=== PATIENT | male | born 1950 | race Caucasian/White ===

== ENCOUNTER 2020-03-07 18:32 | Emergency (ER) | payer OTHER, SELFPAY ==
[2020-03-07 18:31] VITALS: BP 166/88; PULSE 94; RESP 20; TEMP 37.2; O2SAT 97
[2020-03-07 20:15] VITALS: BP 161/86; PULSE 82; RESP 20; O2SAT 95
[2020-03-07] MEDS: HYDROcodone/acetaminophen (*CRX) 5-325 MG TABLET 1 TAB PO (20:15)
[2020-03-07] MEDS: TETANUS,DIPHTHERIA,AC PERTUSSIS ADULT (0.5 ML) BOOSTRIX IM (20:25)
[2020-03-07] MEDS: SILVER SULFADIAZINE 1% CR 400 GM JAR (*BKC) 1 APPLIC TOPICAL (20:26)
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
== END 2020-03-07 21:30 | disposition home or self-care (01) ==
PROVIDERS: Emergency Provider Family Medicine; PCP Internal Medicine
DX: T24.232A Burn of second degree of left lower leg, initial encounter (principal); T24.231A Burn of second degree of right lower leg, initial encounter; T31.0 Burns involving less than 10% of body surface; Z23 Encounter for immunization; I50.9 Heart failure, unspecified; I11.0 Hypertensive heart disease with heart failure; I25.10 Atherosclerotic heart disease of native coronary artery without angina pectoris; E78.5 Hyperlipidemia, unspecified; Z79.01 Long term (current) use of anticoagulants; Z79.82 Long term (current) use of aspirin; X04.XXXA Exposure to ignition of highly flammable material, initial encounter; X06.2XXA Exposure to ignition of other clothing and apparel, initial encounter
CPT/HCPCS: 16020; 90471; 90715; 99283; A9270

== ENCOUNTER 2021-10-27 13:39 | Outpatient (CLI) | payer OTHER, SELFPAY ==
--- NOTE | ~2021-10-27 | US_ITS ---
EXAMINATION: US thyroid DATE: 10/27/2021 14:24 INDICATION: Nontoxic single thyroid nodule. TECHNIQUE: Multiple ultrasound images of the thyroid were obtained. COMPARISON: None. FINDINGS: The right thyroid lobe measures 4.3 x 1.4 x 2.3 cm. The left thyroid lobe measures 5.3 x 2.5 x 3.5 c m. In the right thyroid lobe, there is a 6 mm solid, hypoechoic, [id number] nodule with smooth margin without echogenic foci (TI-RADS TR4). In the left thyroid lobe, there is a 4.5 cm solid, hypoe choic, [id number]-lher-lbbi nodule with ill-defined margin without echogenic foci (TR4). IMPRESSION: 1. Thyroid nodules. Ultrasound-guided fine-needle aspiration of the 4.5 cm left thyroid nodule is rec ommended. Reviewed, dictated and finalized at location A. IMPRESSION: 1. Thyroid nodules. Ultrasound-guided fine-needle aspiration of the 4.5 cm left thyroid nodule is recommended.
== END 2021-10-27 13:40 | disposition home or self-care (01) ==
PROVIDERS: PCP Internal Medicine; Visit Provider Internal Medicine
DX: E04.1 Nontoxic single thyroid nodule (principal)
CPT/HCPCS: 76536

== ENCOUNTER → 2021-12-23 09:08 | Outpatient (CLI) | payer OTHER, SELFPAY ==
--- NOTE | ~2021-12-23 | CT_ITS ---
EXAMINATION: CT diagnostic chest wo con DATE: 12/23/2021 09:29 INDICATION: Abnormal chest x-ray. Cough. History of pneumonia. TECHNIQUE: Computed tomography (CT) of the chest was performed without intravenous contrast. The dose -length product was 711.33 mGy-cm. Automated exposure control and iterative reconstruction technique were employed. COMPARISON: Chest dated 09/23/2012 FINDINGS: Cardiomegaly. There is atherosclerosis of the aorta and coronary arteries. Status post medi an sternotomy for CABG. There is diffuse right pleural thickening, likely sequela of previous infecti on. No left pleural effusion or pericardial effusion. There is right middle lobe and lower lobe multi focal consolidation which may represent atelectasis/scarring or developing pneumonia. No endobronchia l lesions. 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 IMPRESSION: 1. Multifocal infiltrates of the right middle and lower lobe which may represent atelectasis/scarring or developing pneumonia. 2: Moderate diffuse right pleural thickening, likely sequela of previous infectious/inflammatory pro cess. 3: Cardiomegaly. Status post median sternotomy for CABG. Reviewed, dictated and finalized at location A. IMPRESSION: 1. Multifocal infiltrates of the right middle and lower lobe which may represen t atelectasis/scarring or developing pneumonia. 2: Moderate diffuse right pleural thickening, likely sequela of previous infec tious/inflammatory process. 3: Cardiomegaly. Status post median sternotomy for CABG.
== END ==
PROVIDERS: PCP Internal Medicine; Visit Provider Internal Medicine
DX: R93.89 Abnormal findings on diagnostic imaging of other specified body structures (principal); R91.8 Other nonspecific abnormal finding of lung field; I51.7 Cardiomegaly; J90 Pleural effusion, not elsewhere classified
CPT/HCPCS: 71250

== ENCOUNTER 2021-12-29 11:00 | Outpatient (CLI) | payer OTHER, SELFPAY ==
--- NOTE | ~2021-12-29 | US_ITS ---
EXAMINATION: US FNA w image guidance DATE: 12/29/2021 12:13 INDICATION: Thyroid nodule TECHNIQUE: A time-out was performed to verify the patient's name, date of , and procedure to be performed . The procedure and its benefits and risks were discussed with the patient. Risks specifically discus sed included bleeding and infection. The patient understood the risks and agreed to proceed. The neck was prepped and draped in the usual sterile manner. 3 mL 1% lidocaine was used for local anesthesia . 6 passes were made with a 25G needle into the lesion. Appropriate needle location was documented with continuous sonographic guidance. A sterile bandage was applied. There were no immediate compli cations. FINDINGS: Grayscale ultrasound images demonstrate biopsy needles advanced into a 4.6 x 2.5 x 3.1 cm TI RADS 4 l eft thyroid nodule. IMPRESSION: 1. Successful ultrasound-guided fine needle aspiration of a 4.6 cm TI RADS 4 left thyroid nodule. Reviewed, dictated and finalized at location A. IMPRESSION: 1. Successful ultrasound-guided fine needle aspiration of a 4.6 cm TI RADS 4 l eft thyroid nodule.
== END 2021-12-29 11:01 | disposition home or self-care (01) ==
PROVIDERS: PCP Internal Medicine; Visit Provider Internal Medicine
DX: E04.1 Nontoxic single thyroid nodule (principal)
CPT/HCPCS: 10005; 88173; 88305

== ENCOUNTER 2022-08-24 00:39 | Day surgery (SDC) | payer OTHER, SELFPAY ==
[2022-08-14 14:40] VITALS: BMI 40.7
--- NOTE | 2022-08-21 15:04 | PC.NURSE ---
Order to hold Eliquis received from Dr. Snow' office. Notified patient to hold Eliquis starting 08/22/22 until after procedure on 08/24/22. Instructed that he would be informed on day of procedure by Dr. Markham when to restart Eliquis.
[2022-08-24 06:47] VITALS: BP 157/82; PULSE 96; RESP 20; TEMP 36.3; O2SAT 96; BMI 43.0
[2022-08-24] MEDS: LACTATED RINGERS 1,000 ML 150 ML IV CONT (06:53)
--- NOTE | 2022-08-24 07:47 | P.PNAN_ITS ---
Anes - Initial Pre Proc Eval Procedure: Operation Date: 08/24/22 08:00 Proposed Procedures p Screening Colonoscopy - Cuong Markham MD Date/Time: 08/24/22 07:47 Surgeon: Cuong Markham MD Pre Op Diagnosis: neoplasm screening Patient Data Age: 72 Gender: M Height: 1.75 m Weight: 132.1 kg Last Vital Signs Temp 97.4 F L 08/24/22 06:47 Pulse 96 08/24/22 06:47 Resp 20 08/24/22 06:47 BP 157/82 H 08/24/22 06:47 Pulse Ox 96 08/24/22 06:47 O2 Del Method Room Air 08/24/22 06:47 Allergies Allergy/AdvReac Type Severity Reaction Status Date / Time No Known Allergies Allergy Unknown Verified 08/24/22 06:45 Home Medications Medication Instructions Recorded Confirmed Type aspirin 81 mg tablet,delayed 81 mg PO DAILY 03/07/20 08/14/22 History release (Adult Aspirin Regimen) atorvastatin 20 mg tablet 20 mg PO DAILY 03/07/20 08/14/22 History carvedilol 25 mg tablet (Coreg) 25 mg PO BID 03/07/20 08/14/22 History furosemide 20 mg tablet (Lasix) 20 mg PO BID 03/07/20 08/14/22 History hydrocodone 5 mg-acetaminophen 325 1 tablet PO Q6H PRN pain #14 tabs 03/07/20 08/14/22 Rx mg tablet multivitamin (Daily Multi-Vitamin 1 tablet PO DAILY 03/07/20 08/14/22 History tablet) sulfamethoxazole 800 1 tablet PO Q12H 03/07/20 08/14/22 History mg-trimethoprim 160 mg tablet sodium,potassium,mag sulfates 17.5 See Rx Instructions PO .COMPLEX 08/09/22 08/14/22 Rx gram-3.13 gram-1.6 gram oral soln #354 mL (Suprep Bowel Prep Kit) apixaban 5 mg tablet (Eliquis) 5 mg PO BID 08/14/22 08/14/22 History Patient hx anesthesia problems: none Family hx anesthesia problems: none Results Review: All pre-operative results and documents have been reviewed as part of the pre- operative evaluation. [facility] Past Medical History Medical History (Updated 03/08/20 @ 00:00 by Background Daemon) CHF (congestive heart failure) Coronary artery disease History of hyperlipidemia History of hypertension Social History Social History Smoking status: Never smoker Alcohol intake: current Drinks per week: 1 Substance use: never Substance use type: does not use Living arrangements: with family Spiritual care concerns: No Anes - Eval Final PreProcedure Day of Procedure 08/24/22 07:47 Patient weight: morbidly obese Heart: regular rate and rhythm Lungs: clear to auscultation Airway: Mallampati scale class III Neurological: alert and oriented Last oral intake: >/= 8 hours ASA classification: III Emergent: no Anesthetic plan: proceed Anesthesia type and monitoring: general GIVS and standard monitoring Results Review: All pre-operative results and documents have been reviewed as part of the pre- operative evaluation. Informed Consent: The patient's anesthetic plan and its attendant risks and benefits were discussed with the patient/family/POA. Questions were solicited and answers provided to the satisfaction of the patient/family/POA.
--- NOTE | 2022-08-24 07:54 | PM.HPGS ---
History of Present Illness History of Present Illness Consent: Risks, benefits, and alternatives have been discussed and questions answered. Patient agrees to proceed with procedure. Chief complaint: neoplasm screening Narrative: Jack Baldwin Jr. is a 72 year old male Presents for screening colonoscopy. Patient's current weight appetite and bowel movements are normal. Patient denies abdominal pain. He has had no bleeding. Family history noncontributory. Patient states he had colonoscopy many years ago that was unremarkable. Patient presents today for neoplasia screening. Review of Systems Review of Systems: Review of systems noncontributory. [facility] Past Medical History Medical History (Updated 08/24/22 @ 07:55 by Cuong Markham MD) CHF (congestive heart failure) Coronary artery disease History of hyperlipidemia History of hypertension Social History Social History Smoking status: Never smoker Alcohol intake: current Drinks per week: 1 Substance use: never Substance use type: does not use Living arrangements: with family Spiritual care concerns: No Meds Home Medications and Allergies Home Medications Medication Instructions Recorded Confirmed Type aspirin 81 mg tablet,delayed 81 mg PO DAILY 03/07/20 08/14/22 History release (Adult Aspirin Regimen) atorvastatin 20 mg tablet 20 mg PO DAILY 03/07/20 08/14/22 History carvedilol 25 mg tablet (Coreg) 25 mg PO BID 03/07/20 08/14/22 History furosemide 20 mg tablet (Lasix) 20 mg PO BID 03/07/20 08/14/22 History hydrocodone 5 mg-acetaminophen 325 1 tablet PO Q6H PRN pain #14 tabs 03/07/20 08/14/22 Rx mg tablet multivitamin (Daily Multi-Vitamin 1 tablet PO DAILY 03/07/20 08/14/22 History tablet) sulfamethoxazole 800 1 tablet PO Q12H 03/07/20 08/14/22 History mg-trimethoprim 160 mg tablet sodium,potassium,mag sulfates 17.5 See Rx Instructions PO .COMPLEX 08/09/22 08/14/22 Rx gram-3.13 gram-1.6 gram oral soln #354 mL (Suprep Bowel Prep Kit) apixaban 5 mg tablet (Eliquis) 5 mg PO BID 08/14/22 08/14/22 History Allergies Allergy/AdvReac Type Severity Reaction Status Date / Time No Known Allergies Allergy Unknown Verified 08/24/22 06:45 Vital Signs Vital Signs - 24 hr 08/24/22 06:47 Temperature 97.4 F L Pulse Rate 96 Respiratory Rate 20 Blood Pressure 157/82 H Pulse Oximetry 96 Oxygen Delivery Room Air Exam Narrative: Physical exam reveals patient to be alert. Vital signs stable. HEENT exam is unremarkable. Patient is anicteric. Lungs are clear to auscultation and percussion. Heart is without murmur or extra sounds. Abdomen bowel sounds are present soft nontender with no organomegaly. Digital external rectal exam is normal. Assessment and Plan Assessment and plan (1) Encounter for screening colonoscopy: Code(s): Z12.11 - Encounter for screening for malignant neoplasm of colon Status: Acute Assessment and Plan: Patient presents today for screening colonoscopy. He appears to be at average risk for colon polyps. Further recommendations will be given after endoscopy.
[2022-08-24 08:30] VITALS: BP 137/75; PULSE 83; RESP 31; O2SAT 97
[2022-08-24 08:40] VITALS: BP 157/90; PULSE 75; RESP 36; O2SAT 97
[2022-08-24 08:50] VITALS: BP 162/83; PULSE 73; RESP 16; O2SAT 98
== END 2022-08-24 08:57 | disposition home or self-care (01) ==
PROVIDERS: PCP Internal Medicine; Visit Provider Internal Medicine Gastroenterology
PROC: 0DJD8ZZ Inspection of Lower Intestinal Tract, Via Natural or Artificial Opening Endoscopic (ICD-10-PCS; CPT 45378; principal; 2022-08-24 08:00)
DX: Z12.11 Encounter for screening for malignant neoplasm of colon (principal); K64.8 Other hemorrhoids; K57.30 Diverticulosis of large intestine without perforation or abscess without bleeding; I11.0 Hypertensive heart disease with heart failure; I50.9 Heart failure, unspecified; I25.10 Atherosclerotic heart disease of native coronary artery without angina pectoris; E78.5 Hyperlipidemia, unspecified; Z79.82 Long term (current) use of aspirin; Z79.891 Long term (current) use of opiate analgesic; E66.01 Morbid (severe) obesity due to excess calories; Z68.41 Body mass index [BMI] 40.0-44.9, adult
CPT/HCPCS: 45378; J2704; J7120

== ENCOUNTER 2023-06-15 10:22 | Emergency (ER) | payer OTHER, SELFPAY ==
--- NOTE | ~2023-06-15 | XR_ITS ---
Clinical Indication: Shortness of breath PA and lateral views of the chest: Comparison: 09/23/2012 Findings: There is probable small right pleural effusion with right basilar atelectatic change. Left lung clear.. Cardiomediastinal silhouette is within normal limits. Extensive spinal fixation hardwar e is present. Impression: Small right pleural effusion with probable bibasilar atelectatic change. Correlate clinically for pne umonia. Extensive spinal fixation hardware. Reviewed, dictated and finalized at location M. [employer] TECH[employer]ICIAN Impression: Small right pleural effusion with probable bibasilar atelectatic change. Correl ate clinically for pneumonia. Extensive spinal fixation hardware.
--- NOTE | 2023-06-15 10:34 | ED.URI ---
HPI - URI/Sore Throat General Chief Complaint: Upper Respiratory Infection Stated Complaint: diarrhea,sob,cough Time Seen by Provider: 06/15/23 10:34 Source: patient Mode of arrival: ambulatory Limitations: no limitations History of Present Illness HPI Narrative: Jack is a 73-year-old male patient presenting to the clinic today with complaints of diarrhea, shortness breath, and cough x2 days. He reports he is bringing up some brown phlegm. Shortness of breath is worth upon exertion. Has had a few episodes of diarrhea. Does also reports some chills without known fever. MD elicited complaint: cough, nasal congestion and other (Shortness of breath, cough) Related Data Home Medications Medication Instructions Recorded Confirmed aspirin 81 mg tablet,delayed 81 mg PO DAILY 03/07/20 06/15/23 release (Adult Aspirin Regimen) atorvastatin 20 mg tablet 20 mg PO DAILY 03/07/20 06/15/23 carvedilol 25 mg tablet (Coreg) 25 mg PO BID 03/07/20 06/15/23 furosemide 20 mg tablet (Lasix) 20 mg PO BID 03/07/20 06/15/23 multivitamin (Daily Multi-Vitamin 1 tablet PO DAILY 03/07/20 06/15/23 tablet) apixaban 5 mg tablet (Eliquis) 5 mg PO BID 08/14/22 06/15/23 Allergies Allergy/AdvReac Type Severity Reaction Status Date / Time No Known Allergies Allergy Unknown Verified 06/15/23 11:01 Review of Systems Review of Systems: Pertinent positives per HPI. Patient denies any fever, rash, headache, visual changes, dizziness, chest pain, palpitations, nausea, vomiting, diarrhea, constipation, abdominal pain, or any urinary issues. [facility] Past Medical History Medical History CHF (congestive heart failure) Coronary artery disease History of hyperlipidemia History of hypertension Social History Social History Smoking status: Never smoker Alcohol intake: current Drinks per week: 1 Substance use: never Substance use type: does not use Living arrangements: with family Spiritual care concerns: No Comments At the time of my signature, I reviewed and agree with the nursing past medical, surgical, social, and family history. There is no relevant family history pertinent to the patient complaint. Exam Narrative: General: Well-developed, well nourished, in no apparent distress Head: Normocephalic, atraumatic Eyes: Pupils equally round and reactive to light bilaterally, EOM intact, sclera and conjunctive clear, no discharge, lids normal Ears: TMs intact and clear, ear canals clear, no drainage, grossly hearing normal. Nose: Nares patent, clear nasal discharge, mild inflammation, no sinus tenderness. Mouth: Oral pharynx without lesions or masses, good dentition, MMM. Neck: Supple, trachea midline, no enlargement of anterior or posterior cervical nodes, no thyroid masses or goiter palpable. Cardio: Regular rate and rhythm, s1 and s2 normal, no murmur appreciated. Resp: Faint wheeze to the right upper lobe with faint crackles in the lower bases, no rhonchi or rubs Musculoskeletal: No deformity, non-tender to palpation, grossly normal range of motion, muscle strength strong and equal, peripheral pulse strong, 1+ pitting edema in bilateral lower extremities, no cyanosis, normal gait and station Course Course Emergency Course: Portions of this record may have been created with voice recognition software. Level of Care: Express Care Visit Vital Signs Vital signs: Vital signs reviewed Transfer Transfered to: [facility] Transportation: Other (private car) Transfer rationale: Shortness of breath-rule out CHF exacerbation verses right lower lobe consolidated pneumonia. Accepting physician: Ursula Transfer comments: Private car MDM - URI/Sore Throat MDM Narrative Medical decision making narrative: At the time of visit patient is resting comfortably on the exam table. Patient appears to be nontox
[2023-06-15 10:53] VITALS: BP 164/72; PULSE 67; RESP 20; TEMP 36.4; O2SAT 95
== END 2023-06-15 11:45 | disposition short-term general hospital (02) ==
LOC: EXPTROY 10:38
PROVIDERS: Emergency Provider Nurse Practitioner Family; PCP Internal Medicine
DX: R06.02 Shortness of breath (principal); I25.10 Atherosclerotic heart disease of native coronary artery without angina pectoris; E78.5 Hyperlipidemia, unspecified; I10 Essential (primary) hypertension; I50.9 Heart failure, unspecified; Z79.899 Other long term (current) drug therapy; Z79.01 Long term (current) use of anticoagulants; Z79.82 Long term (current) use of aspirin; Z20.822 Contact with and (suspected) exposure to COVID-19
CPT/HCPCS: 71046; 87426; 87804; 99213; C9803; G0463

== ENCOUNTER 2023-06-15 12:05 | Emergency (ER) | payer OTHER, SELFPAY ==
[2023-06-15 12:15] VITALS: BP 137/68; PULSE 78; RESP 20; TEMP 36.7; O2SAT 98
--- NOTE | 2023-06-15 13:50 | PC.NURSE ---
pt up to desk requesting the papers he was sent with from urgent care so he could leave. pt given papers and pt left dept
== END 2023-06-15 13:50 | disposition left against medical advice (07) ==
PROVIDERS: PCP Internal Medicine
DX: R06.00 Dyspnea, unspecified (principal)
CPT/HCPCS: 99199

== ENCOUNTER 2023-12-18 03:02 | Day surgery (SDC) | payer OTHER, SELFPAY ==
[2023-12-17 14:31] VITALS: BMI 41.6
[2023-12-18] VITALS (14 sets, daily range): BP systolic 144–167; BP diastolic 64–102; PULSE 67–80; RESP 12–22; TEMP 36.6–36.7; O2SAT 95–98
[2023-12-18 07:31] LABS: Basophils Absolute Auto 0.1 K/mm3 (0.0-0.1); Basophils Percent Auto 0.7 % (0.2-1.2); Eosinophils Absolute Auto 0.2 K/mm3 (0-0.3); Eosinophils Percent Auto 3.4 % (0-4.4); Hematocrit 41.3 % (42.0-52.0); Immature Granulocyte Absolute 0.02 K/mm3 (0.00-0.031); Immature Granulocyte Percent A 0.3 % (0-0.5); Lymphocytes Absolute Auto 1.03 K/mm3 (0.9-3.2); Lymphocytes Percent Auto 15.2 % (18.3-44.2); Mean Corpuscular HGB Conc 31.5 g/dl (32-36); Mean Corpuscular Hemoglobin 27.7 pg (26-34); Mean Corpuscular Volume 88.1 fl (80-100); Mean Platelet Volume 9.9 fl (7.4-10.4); Monocytes Absolute Auto 0.5 K/mm3 (0.1-0.6); Monocytes Percent Auto 7.8 % (2.6-8.5); Neutrophils Absolute Auto 4.9 K/mm3 (1.3-6.7); Neutrophils Percent Auto 72.6 % (45.5-73.1); Platelet Count Result 196 k/mm3 (150-375); Red Blood Count 4.69 M/mm3 (4.6-6.20); Red Cell Distribution Width 15.7 % (11.5-14.5); White Blood Count 6.8 K/mm3 (4.5-10.0)
[2023-12-18 07:41] LABS: Anion Gap 8 mmol/L (4-12); Blood Urea Nitrogen 20 mg/dL (9-20); Calcium 8.6 mg/dL (8.4-10.2); Carbon Dioxide 31 mmol/L (22-30); Chloride 102 mmol/L (98-107); Estimated CRCL calculation 81 ml/min; Estimated Glomerular Filt Rate > 60; Glucose 113 mg/dL (65-110); Potassium 3.9 mmol/L (3.4-5.0); Sodium 141 mmol/L (137-145)
--- NOTE | 2023-12-18 08:57 | WPDHPUPDATE1 ---
History and Physical Update Update Date/Time: 12/18/23 08:57 History and Physical has been reviewed, including an updated exam of the patient. There are NO changes in the patient's condition. Risks, benefits, and alternatives have been discussed and questions answered. Patient agrees to proceed with procedure.
--- NOTE | 2023-12-18 08:57 | WPDMODSED ---
Moderate Sedation Note-Pt Data Patient Data Diagnosis: Coronary artery disease s/p CABG Present Complaint: Coronary artery disease s/p CABG Procedure to be performed/Plan: Coronary angiography, bypass graft angiography, left heart cath, +/- PCI Allergies Allergy/AdvReac Type Severity Reaction Status Date / Time No Known Allergies Allergy Unknown Verified 12/17/23 14:26 Home Medications Medication Instructions Recorded Confirmed Type aspirin 81 mg tablet,delayed 81 mg PO DAILY 03/07/20 12/17/23 History release (Adult Aspirin Regimen) atorvastatin 20 mg tablet 20 mg PO DAILY 03/07/20 12/17/23 History carvedilol 25 mg tablet (Coreg) 25 mg PO BID 03/07/20 12/17/23 History furosemide 20 mg tablet (Lasix) 20 mg PO BID 03/07/20 12/17/23 History multivitamin (Daily Multi-Vitamin 1 tablet PO DAILY 03/07/20 12/17/23 History tablet) apixaban 5 mg tablet (Eliquis) 5 mg PO BID 08/14/22 12/17/23 History ferrous sulfate 325 mg (65 mg 325 mg PO DAILY 12/17/23 12/17/23 History iron) tablet (FeroSul) finasteride 5 mg tablet 5 mg PO DAILY 12/17/23 12/17/23 History Current Medications: Active Medications Sodium Chloride (Normal Saline Iv) 500 mls @ 100 mls/hr IV CONT .Q5H OJ Sedation/Anesthesia: No previous sedation/anesthesia problems (including family history). [facility] Past Medical History Medical History CHF (congestive heart failure) Coronary artery disease History of hyperlipidemia History of hypertension Social History Social History Smoking status: Never smoker Alcohol intake: current Drinks per week: 1 Substance use: never Substance use type: does not use Living arrangements: with family Spiritual care concerns: No Mod Sed Physical Exam Physical Exam Pre Procedural Exam: Normal: Lungs, Heart Rate, Heart Rhythm, Neuro Exam, Extremities and Skin and Variation: Appearance (Morbidly obese ) and Abdomen (Central obesity ) Hours since solid foods: 12 Hours since liquid intake: 8 Mallampati Classification: class III Internal Medicine - PN: Obj Da Vital Signs Vital Signs: Vital Signs - 24 hr 12/18/23 07:20 Temperature 36.7 C Pulse Rate 77 Respiratory Rate 16 Blood Pressure 161/86 H Pulse Oximetry 97 Oxygen Delivery Room Air Meds/Results Medications: Active Medications Generic Name Dose Route Start Last Admin Trade Name Nora PRN Reason Stop Dose Admin Sodium Chloride 500 mls @ 100 mls/hr 12/18/23 07:00 Normal Saline Iv IV CONT .Q5H OJ Labs 12/18/23 07:18 12/18/23 07:18 Labs: Laboratory Results - last 24 hr 12/18/23 07:18 WBC 6.8 RBC 4.69 Hgb 13.0 L Hct 41.3 L MCV 88.1 MCH 27.7 MCHC 31.5 L RDW 15.7 H Plt Count 196 MPV 9.9 Immature Gran % (Auto) 0.3 Neut % (Auto) 72.6 Lymph % (Auto) 15.2 L [place] % (Auto) 7.8 Eos % (Auto) 3.4 Baso % (Auto) 0.7 Lymph # (Auto) 1.03 [place] # (Auto) 0.5 Eos # (Auto) 0.2 Baso # (Auto) 0.1 Abs Immat Gran (auto) 0.02 Absolute Neuts (auto) 4.9 Absolute Nucleated RBC 0.000 Nucleated RBC % 0.0 Sodium 141 Potassium 3.9 Chloride 102 Carbon Dioxide 31 H Anion Gap 8 BUN 20 Creatinine 1.00 Estim Creat Clear Calc 81 Estimated GFR > 60 Glucose 113 H Calcium 8.6 ASA Classification/Sedation ASA Classification/Sedation ASA Class: II Emergent: No Risks: Risks, benefits and alternatives explained and patient/family accepted plan for sedation. Patient re-evaluated immediately prior to sedation.
--- NOTE | 2023-12-18 08:58 | WPDCARDPROC ---
Cardiac Cath Procedure Note Date of procedure:: 12/18/23 Performing physician:: CATHETERIZATION LABORATORY REPORT Procedure Date: 12/18/2023 Underground [employer] Superintendent: Aidee Romano M.D., [facility]? Referring Physician: Rafael Vega M.D. ? Anesthesia: Versed and Fentanyl were ordered and given in my presence at 09:05, procedure ended at 09:39. Supervision of nurse monitored moderate sedation with Versed and Fentanyl was provided for 34 minutes. Total of Versed 2mg and Fentanyl 50mcg were administered by the Senior Infrastructure Architect RN Austin Quinn. Pre-op Diagnosis: Coronary artery disease s/p CABG Post-op Diagnosis: 1. The LAD has severe diffuse disease and is occluded in the mid portion. Competitive filling in the LAD and diagonal branch from the BEAN graft is seen. BEAN to the LAD and Diagonal branch is widely patent. The LAD and the diagonal branch after the BEAN anastomosis are small caliber vessels and with diffuse disease. 2. Dominant RCA with severe calcific distal RCA bifurcation disease extending into the ostial RPLV. Procedure(s): 1. Moderate sedation 2. Ultrasound-guided access of the right common femoral artery 3. Coronary angiography 4. Bypass graft angiography Access Site: Right common femoral artery Brief History and Clinical Indications: Patient is a 73 year old male with CAD s/p CABG who is referred for [facility] for abnormal stress test. All risks, benefits and alternatives to left heart catheterization with or without percutaneous coronary intervention was discussed at length with the patient. Risk of complications including but not limited to bleeding, infection, arrhythmia, stroke, worsening kidney function, blood loss, groin hematoma, limb loss, emergency coronary artery bypass grafting, and even were discussed with the patient and all questions were answered. The patient understood and wished to proceed. Time out called, patient name, date of , medical record number, allergies, procedure performed, identify [employer] Superintendent, patient and staff member concurred with accurate data, procedure carried on. Findings: LEFT HEART CATHETERIZATION FINDINGS: 1. Left main: The left main coronary artery is widely patent without any significant obstructive disease. The left main is a long vessel. 2. Left anterior descending: The LAD has severe diffuse disease and is occluded in the mid portion. Competitive filling in the LAD and diagonal branch from the BEAN graft is seen. The LAD and the diagonal branch after the BEAN anastomosis are small caliber vessels and with diffuse disease. 3. Left circumflex: The left circumflex artery has diffuse mild disease. The OM branch has luminal irregularities. No significant obstructive angiographic disease. 4. Right coronary artery: Large caliber vessel. The RCA is the dominant vessel. The distal RCA is heavily calcified. There is significant calcific distal RCA bifurcation disease of 80-90% extending into the ostial RPLV. 5. Bypass graft angiography: A. BEAN to the LAD and Diagonal branch is widely patent. Description of Procedure: Informed consent signed and placed in the chart. Patient transferred to cath lab tech room. Prepped and draped in usual sterile fashion. 2% lidocaine in right groin area. Micropuncture needle used to access right common femoral artery with Seldinger technique under fluoroscopic and ultrasound guidance. J wire advanced, micropuncture cannula placed. Right iliofemoral angiogram performed, access confirmed and micropuncture cannula exchanged for 5-FR sheath. 5F FL 4 diagnostic catheter engaged Left Main Coronary Artery. 5F FR 4 diagnostic catheter engaged Right Coronary Artery. 5F IM diagnostic catheter engaged in the BEAN. Multiple orthogonal angiogram obtained and reviewed Attempted to cross into the LV to obtain LVEDP with a 5F Pigtail, but unable to cross due to aortic tortuosity that made it difficult to manipulate the catheter. Hemostasis was achieved by man
== END 2023-12-18 13:47 | disposition home or self-care (01) ==
PROVIDERS: PCP Internal Medicine; Visit Provider Internal Medicine
PROC: 4A023N7 Measurement of Cardiac Sampling and Pressure, Left Heart, Percutaneous Approach (ICD-10-PCS; CPT 93459; principal; 2023-12-18 08:30)
DX: I25.118 Atherosclerotic heart disease of native coronary artery with other forms of angina pectoris (principal); R94.39 Abnormal result of other cardiovascular function study; Z95.1 Presence of aortocoronary bypass graft; I25.5 Ischemic cardiomyopathy; I11.0 Hypertensive heart disease with heart failure; I50.9 Heart failure, unspecified; I48.92 Unspecified atrial flutter; I25.2 Old myocardial infarction; I35.0 Nonrheumatic aortic (valve) stenosis; R06.09 Other forms of dyspnea; E78.5 Hyperlipidemia, unspecified; Z79.82 Long term (current) use of aspirin; Z79.01 Long term (current) use of anticoagulants; Z98.890 Other specified postprocedural states
CPT/HCPCS: 36415; 80048; 85025; 93459; C1769; C1887; C1894; J0461; J1644; J2250; J3010; J7040

== ENCOUNTER 2024-03-17 15:00 | Outpatient (RCR) | payer OTHER, SELFPAY ==
[2024-01-25 11:47] VITALS: PULSE 75
== END 2024-03-20 15:05 | disposition home or self-care (01) ==
LOC: ANHCPREHAB 15:00
PROVIDERS: PCP Internal Medicine; Visit Provider Internal Medicine Cardiovascular Disease
DX: Z95.5 Presence of coronary angioplasty implant and graft (principal)
CPT/HCPCS: 93798

== ENCOUNTER 2024-06-24 09:52 | Outpatient (CLI) | payer OTHER, SELFPAY ==
--- NOTE | ~2024-06-24 | CT_ITS ---
CT abdomen pelvis wo con Ordering provider: Mikal Cid MD History: 74 years Male with . R10.31 - Right lower quadrant pain . Comparison: August 08, 2004 Technique: CT abdomen and pelvis without IV and without oral contrast. Automated exposure control and iterative reconstruction technique were employed. The dose-length product was 1622.88 mGy-cm. Findings: VISUALIZED LOWER CHEST: Atelectatic changes with minimal effusion the right lung base. UPPER ABDOMINAL ORGANS: Liver: Hepatomegaly. Gallbladder: Status post cholecystectomy. Spleen: Normal. Stomach/duodenum: Normal. Pancreas: Normal. Adrenals: Normal. Kidneys: Tiny stone in the right lower pole. PELVIC ORGANS: The bladder is normal. BOWEL AND MESENTERY: Colon: No evidence of diverticulitis. Appendix is not demonstrated. Small Bowel: Normal. No obstruction. Peritoneum/mesentery: No free air or free fluid. No mesenteric lymphadenopathy. RETROPERITONEUM: Mild atheromatous disease of the abdominal aorta. No retroperitoneal lymphadenopat hy. MUSCULOSKELETAL: Superficial soft tissues: The superficial soft tissues are normal. Bones: Age appropriate degenerative changes of the spine. Postoperative changes in the thoracolumbar area. Bilateral hip osteoarthritic change. IMPRESSION: 1. Tiny stone in the right kidney lower pole. 2. No evidence of appendicitis, diverticulitis or intestinal obstruction. 3. Hepatomegaly. Reviewed, dictated and finalized at location A. [facility]
== END 2024-06-24 09:53 | disposition home or self-care (01) ==
PROVIDERS: PCP Internal Medicine; Visit Provider Surgery
DX: R10.31 Right lower quadrant pain (principal); K76.0 Fatty (change of) liver, not elsewhere classified
CPT/HCPCS: 74176